=== PATIENT | male | born 1980 | race Caucasian/White ===

== ENCOUNTER 2017-03-27 13:24 | Emergency (ER) | payer MEDICAID, OTHER ==
[~2017-03-27] VITALS: Ht 182.9 cm; Wt 88.5 kg
--- NOTE | 2017-03-27 13:45 | NUR ---
PATIENT PRESENTS TO ED WITH C/O RIGHT FOOT PAIN . PT STATES HE DROPPED A PIECE OF FURNITURE ON HIS RIGHT FOOT THIS AM AND HAS HAD CONSISTENT PAIN SINCE THEN . DENIES N/V/D; ECCHYMOSIS NOTED TO RIGHT FOOT, SKIN IS OTHERWISE PINK/WARM/DRY; AAOX4 WITH EVEN AND STEADY GAIT; LUNGS CLEAR BL; HR EVEN AND REGULAR; PT DENIES ANY FEVER, CP, SOB, OR COUGH AT THIS TIME; PATIENT STATES PAIN OF 7/10 AT THIS TIME; VSS; PATIENT POSITIONED FOR COMFORT; HOB ELEVATED; BEDRAILS UP X2; BED DOWN. ER MD MADE AWARE OF PT STATUS.
[2017-03-27 13:56] VITALS: BP 127/64
--- NOTE | 2017-03-27 14:16 | NUR ---
Patient being evaluated by physician at bedside.
[2017-03-27 14:29] VITALS: BP 122/65
--- NOTE | 2017-03-27 14:30 | NUR ---
Patient discharged with v/s stable. Written and verbal after care instructions given and explained. Patient alert, oriented and verbalized understanding of instructions. Ambulatory with steady gait. All questions addressed prior to discharge. ID band removed. Patient advised to follow up with PMD. Opportunity to ask questions provided and answered.
== END 2017-03-27 14:30 | disposition home or self-care (01) ==
LOC: MED 13:24
DX: S90.31XA Contusion of right foot, initial encounter (principal); W20.8XXA Other cause of strike by thrown, projected or falling object, initial encounter; Y93.89 Activity, other specified; Y92.89 Other specified places as the place of occurrence of the external cause; Y99.8 Other external cause status

== ENCOUNTER 2018-01-27 09:31 | Emergency (ER) | payer OTHER ==
[~2018-01-27] VITALS: Ht 182.9 cm; Wt 94.3 kg
[2018-01-27 09:37] VITALS: BP 124/81
--- NOTE | 2018-01-27 09:40 | NUR ---
PATIENT PRESENTS TO ED WITH C/O NOSE BLEED YESTERDAY; HAD ANOTHER EPISODE OF NOSE BLEED TODAY, LIGHTHEADACH, DENIES N/V. DENIES HX AND DENIES ANY RX. SKIN IS PINK/WARM/DRY; AAOX4 WITH EVEN AND STEADY GAIT; LUNGS CLEAR BL; HR EVEN AND REGULAR; PT DENIES ANY FEVER, CP, SOB, OR COUGH AT THIS TIME; PATIENT STATES PAIN OF 0/10 AT THIS TIME; VSS; ER MD MADE AWARE OF PT STATUS.
[2018-01-27 10:18] VITALS: BP 124/81
--- NOTE | 2018-01-27 10:18 | NUR ---
Patient discharged with v/s stable. Written and verbal after care instructions given and explained. Patient verbalized understanding. Ambulatory with steady gait. All questions addressed prior to discharge. Advised to follow up with PMD.
== END 2018-01-27 10:18 | disposition home or self-care (01) ==
LOC: MED 09:31
DX: R04.0 Epistaxis (principal)
CPT/HCPCS: 99281

== ENCOUNTER 2024-03-28 16:33 | Emergency (ER) | payer OTHER ==
[~2024-03-28] VITALS: Ht 180.3 cm; Wt 109.9 kg
[2024-03-28 16:57] VITALS: BP 121/67; PULSE 101; RESP 18; TEMP 97.9; O2SAT 99
[2024-03-28] MEDS ORDERED: IBUP-1842 PO (17:18)
[2024-03-28] MEDS ORDERED: ACET-10509 PO (17:18)
[2024-03-28] MEDS ORDERED: CEPH-588 PO (17:18)
[2024-03-28] MEDS: KETOROLAC 30 MG/ML VIAL IM ONE (17:34)
[2024-03-28 17:56] VITALS: BP 132/66; PULSE 78; RESP 18; TEMP 98.3; O2SAT 99
== END 2024-03-28 17:55 | disposition home or self-care (01) ==
LOC: MED 16:33
DX: S50.861A Insect bite (nonvenomous) of right forearm, initial encounter (principal); L03.113 Cellulitis of right upper limb; Z79.1 Long term (current) use of non-steroidal anti-inflammatories (NSAID); Z79.899 Other long term (current) drug therapy; Y93.29 Activity, other involving ice and snow; Y92.89 Other specified places as the place of occurrence of the external cause; Y99.8 Other external cause status
CPT/HCPCS: 96372; 99283; J1885

== ENCOUNTER 2024-03-30 09:06 | Emergency (ER) | payer OTHER ==
[~2024-03-30] VITALS: Ht 180.3 cm; Wt 109.8 kg
[~2024-03-30 09:06] MED LIST: ACET-10509 PO; CEPH-588 PO; IBUP-1842 PO
[2024-03-30 09:11] VITALS: BP 127/81; PULSE 86; RESP 18; TEMP 97.5; O2SAT 98
[2024-03-30] MEDS ORDERED: SULF-58 PO (11:20)
[2024-03-30] MEDS ORDERED: TRAM-748 PO (11:20)
[2024-03-30] MEDS ORDERED: CEPH-588 PO (11:20)
[2024-03-30] MEDS: BACITRACIN OINT 500 UNITS/GM PKT TP ONE (11:32)
[2024-03-30] MEDS: KETOROLAC 60 MG/2 ML VIAL IM ONE (11:35)
[2024-03-30 11:37] VITALS: BP 127/81; PULSE 86; RESP 18; TEMP 97.5; O2SAT 98
== END 2024-03-30 11:37 | disposition home or self-care (01) ==
LOC: MED 09:06
DX: L03.113 Cellulitis of right upper limb (principal); Z79.1 Long term (current) use of non-steroidal anti-inflammatories (NSAID); Z79.899 Other long term (current) drug therapy
CPT/HCPCS: 96372; 99284; J1885